=== PATIENT | male | born 1980 | race Caucasian/White ===

== ENCOUNTER → 2018-10-27 | Outpatient (CLI) | payer OTHER | END | disposition home or self-care (01) | LOC: CVU 10:11 | PROVIDERS: ATTEND Internal Medicine Cardiovascular Disease | DX: I07.9 Rheumatic tricuspid valve disease, unspecified (principal); I51.7 Cardiomegaly; Q21.0 Ventricular septal defect | CPT/HCPCS: 93306 ==

== ENCOUNTER → 2019-01-15 | Outpatient (CLI) | payer OTHER | END | disposition home or self-care (01) | LOC: CFH 08:01 | PROVIDERS: ATTEND Internal Medicine Cardiovascular Disease | DX: I99.8 Other disorder of circulatory system (principal) | CPT/HCPCS: 78452; 93017; A9502 ==